=== PATIENT | female | born 1975 | race American Indian/Alaskan Native ===

== ENCOUNTER 2018-12-06 17:15 | Emergency (ER) | payer SELFPAY ==
--- NOTE | 2018-12-06 17:22 | Event Note ---
ED Screening Note ED Screening Note: sp fall mechanical co hip, butt and knee pain no pmh rx none psh none lmp 3 w ago This initial assessment/diagnostic orders/clinical plan/treatment(s) is/are subject to change based on patients health status, clinical progression and re- assessment by fellow clinical providers in the ED. Further treatment and workup at subsequent clinical providers discretion. Patient/guardian urged not to elope from the ED as their condition may be serious if not clinically assessed and managed. Initial orders include: xray
[2018-12-06 17:23] VITALS: BP 126/82
--- NOTE | 2018-12-06 18:10 | XRay Report ---
HISTORY: pain inf surface of knee sp gl mechanical fall tod COMPARISON: None. TECHNIQUE: AP lateral and oblique FINDINGS: Bones: No fracture or dislocation. Joint spaces: Maintained. Soft tissues: No significant abnormality. Additional findings: None. IMPRESSION: 1. No significant abnormality. Signer Name: Aston Russo MD Signed: 12/06/2018 6:06 PM Workstation Name: [id number]
--- NOTE | 2018-12-06 18:11 | XRay Report ---
HISTORY: left hip and pelvic pain sp fall COMPARISON: None. TECHNIQUE: AP pelvis and lateral left hip FINDINGS: Bones: No fracture or dislocation. Joint spaces: Maintained. Soft tissues: No significant abnormality. Additional findings: None. IMPRESSION: 1. No significant abnormality. Signer Name: Aston Russo MD Signed: 12/06/2018 6:07 PM Workstation Name: [id number]
--- NOTE | 2018-12-06 19:02 | Emergency Department Report ---
ED Fall HPI - General Chief Complaint: Fall Stated Complaint: LFT BUTTOCK PAIN/FALL INJURY/PAIN Time Seen by Provider: 12/06/18 17:21 Source: patient Mode of arrival: Ambulatory - History of Present Illness Initial Comments: Patient is a 43-year-old female who presents the emergency room with complaints of a ground-level fall that occurred today at [facility] around 4 PM. She states that she was grocery shopping and she slipped in some liquid in the aisle and fell. She states she has left knee and left hip pain. She states she has been ambulatory. She denies any numbness, weakness, bowel or bladder incontinence, or any other injury or pain. She denies ever injuring this leg before. She denies any past medical history or allergies to medications. - Related Data Previous Rx's Medication Instructions Recorded Last Taken Type Naproxen [Naprosyn TAB] 500 mg PO BID PRN #14 tablet 12/06/18 Unknown Rx Allergies Allergy/AdvReac Type Severity Reaction Status Date / Time No Known Allergies Allergy Unverified 12/06/18 17:19 ED Review of Systems ROS: Stated complaint: LFT BUTTOCK PAIN/FALL INJURY/PAIN Other details as noted in HPI Comment: All other systems reviewed and negative ED Past Medical Hx - Past Medical History Previous Medical History?: No - Surgical History Past Surgical History?: No - Social History Smoking Status: Never Smoker Substance Use Type: None - Medications Home Medications: Home Medications Medication Instructions Recorded Confirmed Last Taken Type Naproxen [Naprosyn TAB] 500 mg PO BID PRN #14 tablet 12/06/18 Unknown Rx ED Physical Exam - General Limitations: No Limitations General appearance: alert, in no apparent distress - Head Head exam: Present: atraumatic, normocephalic - Eye Eye exam: Present: normal appearance - ENT ENT exam: Present: mucous membranes moist - Respiratory Respiratory exam: Present: normal lung sounds bilaterally. Absent: respiratory distress, wheezes, rales, rhonchi, stridor, accessory muscle use, decreased breath sounds, prolonged expiratory - Cardiovascular Cardiovascular Exam: Present: regular rate, normal rhythm, normal heart sounds. Absent: systolic murmur, diastolic murmur, rubs, gallop - Extremities Exam Extremities exam: Present: other (mild TTP over the left anterior knee, no TTP to the lateral or medial left knee, no obviuos edema, no obvious joint laxity, no ecchymosis, FROM of the left knee without difficulty, mild TTP over the left lateral hip, mild TTP over the left gluteus yomi, FROM of the left hip without difficulty, 2+ distal pulses, sensation intact) - Neurological Exam Neurological exam: Present: alert, oriented X3 - Psychiatric Psychiatric exam: Present: normal affect, normal mood - Skin Skin exam: Present: warm, dry, intact ED Course Vital Signs 12/06/18 17:21 Temperature 98.3 F Pulse Rate 75 Respiratory 20 Rate Blood Pressure 126/82 ED Medical Decision Making - Radiology Data Radiology results: report reviewed HISTORY: left hip and pelvic pain sp fall COMPARISON: None. TECHNIQUE: AP pelvis and lateral left hip FINDINGS: Bones: No fracture or dislocation. Joint spaces: Maintained. Soft tissues: No significant abnormality. Additional findings: None. IMPRESSION: 1. No significant abnormality. Signer Name: Aston Russo MD Signed: 12/06/2018 6:07 PM Workstation Name: [id number] Transcribed By: SAMIR Dictated By: Aston Russo MD Electronically Authenticated By: Aston Russo MD Signed Date/Time: 12/06/18 0975 HISTORY: pain inf surface of knee sp gl mechanical fall tod COMPARISON: None. TECHNIQUE: AP lateral and oblique FINDINGS: Bones: No fracture or dislocation. Joint spaces: Maintained. Soft tissues: No significant abnormality. Additional findings: None. IMPRESSION: 1. No significant abnormality. Signer Name: Aston Russo MD Signed: 12/06/2018 6:06 PM Workstation Name: [id number] Transcribed By: SAMIR Dictated By: Aston Russo MD Electronically Authenticated By: Aston Russo MD Signed Date/Time: 12/06/18 7662 - Medical Decision Making Patient is a 43-year-old female who presents the emergency room with complaints of a ground-level fall that occurred today at [facility] around 4 PM. She states that she was grocery shopping and she slipped in some liquid in the aisle and fell. She states she has left knee and left hip pain. She states she has been ambulatory. She denies any numbness, weakness, bowel or bladder incontinence, or any other injury or pain. She denies ever injuring this leg before. She denies any past medical history or allergies to medications.vitals are normal. on exam: mild TTP over the left anterior knee, no TTP to the lateral or medial left knee, no obviuos edema, no obvious joint laxity, no ecchymosis, FROM of the left knee without difficulty, mild TTP over the left lateral hip, mild TTP over the left gluteus yomi, FROM of the left hip without difficulty, 2+ distal pulses, sensation intact. XR of the left knee and left hip with no significant abnormality. pt given prescription for naproxen. advised to take medication as prescribed. discussed RICE therapy with pt. advised pt to follow up with PCP in the next 2-3 days. return to the emergency room for any new or worsening symptoms. - Differential Diagnosis strain, sprain, fx, dislocation, tendon/ligament injury, contusion Critical care attestation.: If time is entered above; I have spent that time in minutes in the direct care of this critically ill patient, excluding procedure time. ED Disposition Clinical Impression: Left hip pain Left knee pain Qualifiers: Chronicity: acute Qualified Code(s): M25.562 - Pain in left knee Disposition: TO HOME OR SELFCARE Is pt being admited?: No Does the pt Need Aspirin: No Condition: Stable Instructions: Knee Pain (ED), Arthralgia (ED) Additional Instructions: please take medication as prescribed. may use rest, elevation, and ice for 15 minutes at a time. Follow up with a primary care doctor in the next 2-3 days. return to the emergency room for any new or worsening symptoms. Prescriptions: Naproxen [Naprosyn TAB] 500 mg PO BID PRN #14 tablet PRN Reason: pain Referrals: GUS NAPOLES MD [Primary Care Provider] - 2-3 Days [facility] [Outside] - 2-3 Days [facility] [Outside] - 2-3 Days Time of Disposition: 19:04 Print Language: SWAZI
== END 2018-12-06 19:33 | disposition home or self-care (01) ==
LOC: ED 17:15
DX: M25.562 Pain in left knee (principal); M25.552 Pain in left hip; Z79.899 Other long term (current) drug therapy; W01.0XXA Fall on same level from slipping, tripping and stumbling without subsequent striking against object, initial encounter; Y93.89 Activity, other specified; Y92.512 Supermarket, store or market as the place of occurrence of the external cause; Y99.8 Other external cause status
CPT/HCPCS: 99283